=== PATIENT | male | born 1960 | race Caucasian/White ===

== ENCOUNTER 2021-04-11 12:23 | Outpatient (CLI) | payer OTHER ==
--- NOTE | 2021-04-11 15:30 | MRI Report ---
PROCEDURE: Cervical Spine W/O INDICATIONS: C5/6 PARESTHESIA TECHNIQUE: Noncontrast sagittal T1 spin echo and T2 fast spin echo, sagittal STIR, foraminal oblique sagittal T2 fast spin echo, and axial gradient echo or T2 fast spin echo through the cervical spine. COMPARISON: None. FINDINGS: Image quality: Excellent. Alignment and Curvature: There is normal bony alignment. Bone Marrow: Marrow demonstrates normal overall signal. Spinal Cord: Visualized spinal cord has normal size and signal. No cerebellar tonsillar herniation. Regional Soft Tissues: No paravertebral masses. Prevertebral soft tissues are normal in thickness. C2-C3: No spinal canal or neural foraminal stenosis. C3-C4: Moderate spinal canal stenosis due to posterior disc-osteophyte complex. Stenosis is most pr onounced in the left paracentral zone and lateral recess where there is a prominent component of the disc protrusion flattening and indenting the ventral cord. CSF surrounding the cord is mostly effaced . Facet and uncovertebral hypertrophy combined with a foraminal component of the disc bulge to produc e severe left neural foraminal narrowing. Mild neural foraminal narrowing on the right due to facet a nd uncovertebral hypertrophy. C4-C5: Posterior disc-osteophyte complex producing moderate spinal canal stenosis with near complete circumferential CSF effacement. Severe right and moderate left neural foraminal narrowing due to fac et and uncovertebral hypertrophy. C5-C6: Moderate spinal canal stenosis due to posterior disc osteophyte complex. Facet and uncoverteb ral hypertrophy contribute to severe right and moderate left neural foraminal stenosis. C6-C7: No spinal canal stenosis. Mild neural foraminal narrowing on the left due to uncovertebral sp urring. C7-T1: No spinal canal or neural foraminal stenosis. IMPRESSION: Moderate spinal canal stenosis at C3-C4 and C4-C5. Severe neural foraminal narrowing on the left at C3-C4, on the right at C4-C5, and on the right at C5 -C6. Moderate neural foraminal narrowing on the left at both C4-C5 and C5-C6. Reviewed by: Emmanuel Bell MD on 04/11/2021 3:29 PM PST Approved by: Emmanuel Bell MD on 04/11/2021 3:29 PM PST Station ID: [id number]
== END 2021-04-11 12:24 | disposition home or self-care (01) ==
LOC: DI 12:23
PROVIDERS: ATTEND Internal Medicine
DX: R94.138 Abnormal results of other function studies of peripheral nervous system (principal); M48.02 Spinal stenosis, cervical region